=== PATIENT | female | born 1980 | race Caucasian/White ===

== ENCOUNTER 2018-10-17 21:21 | Emergency (ER) | payer OTHER ==
[2018-10-18] MEDS: LIDOCAINE 1% (MDV) 20 ML INJ SC (00:24)
[2018-10-18] MEDS: LIDOCAINE 1% (MPF) 5 ML VIAL INFIL (00:45)
[2018-10-18] MEDS: CEFTRIAXONE 1 GM INJ IM (00:45)
[2018-10-18] MEDS: TRIMETHOPRIM/SULFAMETHOX (DS) TAB PO (00:45)
== END 2018-10-18 01:39 | disposition home or self-care (01) ==
LOC: FTE 21:21
DX: L03.818 Cellulitis of other sites (principal); J45.909 Unspecified asthma, uncomplicated
CPT/HCPCS: 10060; 96372; 99284-25